=== PATIENT | male | born 1965 | race Two or more races ===

== ENCOUNTER 2025-01-16 08:06 | Outpatient (CLI) | payer MEDICAID ==
--- NOTE | 2025-01-17 05:18 | DVH ---
Procedure: NM NM BONE 3 PHASE Exam Date: 01/16/2025 08:56 AM Clinical History: HISTORY OF RIGHT KNEE REPLACEMENT Comparison Study: None Nuclear Medicine Three-Phase Bone Scan Technique: Following the intravenous administration of 26 millicuries of technetium 99m MDP dynamic blood flow i mages and static and blood pool images were obtained. Delayed planar images were obtained at 3 hours . Findings: There is region of photopenia in the right knee compatible with a right knee replacement. Surroundin g the area of photopenia, there is radiotracer uptake on flow, blood pool and delayed phase imaging i n the distal femur and proximal tibia of the right knee. Focal radiotracer uptake in the medial aspe ct of the proximal tibia on delayed images. Impression: 1. Radiotracer uptake in the distal femur and proximal tibia of the right knee in patient with right knee replacement, which may reflect infection or hardware loosening in the appropriate clinical setti ng. 2. Nonspecific radiotracer uptake in the medial proximal tibia of the left knee only seen on delayed phase imaging, nonspecific and could be related to osteoarthritis.
== END 2025-01-16 17:00 | disposition home or self-care (01) ==
LOC: XYW 08:06
PROVIDERS: ATTEND Physician Assistant
DX: Z96.651 Presence of right artificial knee joint (principal)
CPT/HCPCS: 78315; A9503